=== PATIENT | male | born 1960 | race Caucasian/White ===

== ENCOUNTER 2016-11-26 13:18 | Outpatient (CLI) | payer OTHER ==
[2015-04-16 10:52] VITALS: BP 124/76
--- NOTE | 2016-11-27 13:32 | OP Clinic Progress Note ---
REFERRING PHYSICIAN: Dr. Bandar Palacios REASON FOR VISIT: This 56-year-old man was seen with a history of having had infection in his nose with clinical rhinosinusitis about June of 2016. He took an antibiotic with moderate improvement. He had a type of relapse with particularly soreness of the distal third nose and crusting. He took Keflex and was fairly significantly improved again. He has soreness and he tends to rub his nose. With an anterior rhinoscope, he has diffuse inflammation. It looks like recently there was a small abscess from some of the anterior nasal hairs on the right side that, by his history, is resolving. Clinically, I do not see any pus right now to culture. Clinically, he has anterior rhinitis more in the domes of his nose. 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 PLAN: I have recommended, even though he is around dirt, dust, and irritants, to use saline nasal spray. Additionally, I have given him a prescription for gentamicin antibiotic ointment to use 3 times a day initially and then later twice a day rubbing it fairly deeply in the nose with different ways of applying this described. Patient will try this for a period of time and if it has not sufficiently resolved the issue, he can come back. The second issue is simply the patient describing restless sleep and then he acknowledged that he has had a sleep study and was diagnosed with mild to moderate sleep apnea. He was appropriately prescribed a CPAP machine but has had no real success in using it and not able to tolerate it. I went over issues and complications associated with ongoing untreated sleep apnea with some degree of shortening of life and hypertension. I do note that he takes lisinopril and hydrochlorothiazide. I addressed these issues with the patient. He will try the simple approach of using saline nasal sprays and the gentamicin ointment several times a day to both nostrils. He understands the issues of sleep apnea. I left the door open for the patient to revisit me if that becomes his choice at a later date. cc: Dr. Bandar [email or web address]
== END 2016-11-26 13:20 ==
LOC: ENT 13:18
PROVIDERS: ATTEND Otolaryngology
DX: J32.9 Chronic sinusitis, unspecified (principal)
CPT/HCPCS: 31231; 99203

== ENCOUNTER 2017-04-13 13:58 | Outpatient (CLI) | payer OTHER ==
[2015-04-16 10:52] VITALS: BP 124/76
== END 2017-04-13 14:00 ==
LOC: LABRHC 13:58
PROVIDERS: ATTEND Physician Assistant
DX: L02.91 Cutaneous abscess, unspecified (principal)
CPT/HCPCS: 87070